=== PATIENT | female | born 1975 | race Caucasian/White ===

== ENCOUNTER 2017-09-14 17:21 | Emergency (ER) | payer SELFPAY ==
[~2017-09-14] VITALS: Ht 160 cm; Wt 86.0 kg
[2017-09-14] MEDS ORDERED: KETOROLAC 60MG/2ML VIAL IM ONE (20:00)
[2017-09-14] MEDS ORDERED: TRAMADOL 50MG TABLET PO ONE (20:00)
[2017-09-14 20:10] VITALS: BP 130/64
== END 2017-09-14 20:12 | disposition home or self-care (01) ==
LOC: ER 17:37
DX: M19.90 Unspecified osteoarthritis, unspecified site (principal); Z98.890 Other specified postprocedural states
CPT/HCPCS: 96372; 99283; J1885; Z7610

== ENCOUNTER 2018-07-25 14:20 | Emergency (ER) | payer SELFPAY ==
[~2018-07-25] VITALS: Ht 154.9 cm; Wt 89.0 kg
[2018-07-25 14:37] VITALS: BP 129/64
[2018-07-25] MEDS ORDERED: KETOROLAC 60MG/2ML VIAL IM ONE (16:15)
[2018-07-25] MEDS ORDERED: PREDNISONE 20MG TABLET PO SCH (16:15)
[2018-07-25] MEDS ORDERED: TRAMADOL 50MG TABLET PO ONE (17:15)
== END 2018-07-25 18:08 | disposition home or self-care (01) ==
LOC: ER 14:20
DX: M06.89 Other specified rheumatoid arthritis, multiple sites (principal)
CPT/HCPCS: 96372; 99283; J1885; J7512

== ENCOUNTER 2018-08-04 17:15 | Emergency (ER) | payer SELFPAY ==
[~2018-08-04] VITALS: Ht 160 cm; Wt 87.0 kg
[2018-08-04] MEDS ORDERED: PREDNISONE 20MG TABLET PO ONE (20:30)
[2018-08-04] MEDS ORDERED: KETOROLAC 30MG/ML VIAL IM ONE (20:30)
[2018-08-04 22:16] VITALS: BP 156/67
== END 2018-08-04 22:17 | disposition home or self-care (01) ==
LOC: ER 17:15
DX: M19.90 Unspecified osteoarthritis, unspecified site (principal); Z98.890 Other specified postprocedural states
CPT/HCPCS: 81025; 96372; 99283; J1885; J7512

== ENCOUNTER 2018-08-19 12:06 | Emergency (ER) | payer MEDICAID ==
[~2018-08-19] VITALS: Ht 160 cm; Wt 89.0 kg
[2018-08-19 12:42] VITALS: BP 128/47
[2018-08-19] MEDS ORDERED: DEXAMETHASONE 10 MG/ML VIAL IM ONE (17:00)
== END 2018-08-19 17:39 | disposition home or self-care (01) ==
LOC: ER 12:06
DX: M17.0 Bilateral primary osteoarthritis of knee (principal); M19.242 Secondary osteoarthritis, left hand; M19.241 Secondary osteoarthritis, right hand; R03.0 Elevated blood-pressure reading, without diagnosis of hypertension
CPT/HCPCS: 96372; 99283; J1100